=== PATIENT | female | born 2000 | race Two or more races ===

== ENCOUNTER 2025-05-11 19:10 | Inpatient (IN) | payer OTHER ==
[2025-05-11] MEDS ORDERED: Ondansetron 4 MG/2 ML SDV IVPUSH PRN (19:21)
[2025-05-11] MEDS ORDERED: Sodium Chloride 0.9% 10 ML Syringe FLUSH PRN (19:21)
[2025-05-11 19:45] LABS: BASOPHILS ABSOLUTE AUTO 0.0 K/mm3 (0.0-0.2); BASOPHILS PERCENT AUTO 0.1 % (0.0-1.0); EOSINOPHILS ABSOLUTE AUTO 0.1 K/mm3 (0.0-0.4); EOSINOPHILS PERCENT AUTO 0.9 % (0.0-6.0); IMMATURE GRAN ABSOLUTE AUTO 0.15 K/mm3 (0.00-0.05); IMMATURE GRAN PERCENT AUTO 2.0 % (0.0-0.4); LYMPHOCYTES ABSOLUTE AUTO 1.9 K/mm3 (1.0-4.8); LYMPHOCYTES PERCENT AUTO 24.7 % (24.0-44.0); MEAN PLATELET VOLUME 12.0 fl (9.4-12.3); MONOCYTES ABSOLUTE AUTO 0.6 K/mm3 (0.0-0.8); MONOCYTES PERCENT AUTO 8.4 % (0.0-8.0); NEUTROPHILS ABSOLUTE AUTO 4.9 K/mm3 (1.8-7.7); NEUTROPHILS PERCENT AUTO 63.9 % (41.0-71.0); NRBC ABSOLUTE 0.02 (0.00-0.02); NRBC PERCENT 0.3 % (0.0-0.2); PLATELET COUNT,PLT 174 K/mm3 (150-400); RED BLOOD CELL COUNT 3.92 M/mm3 (4.10-5.30); WHITE BLOOD CELL COUNT,WBC 7.64 K/mm3 (3.9-11.3)
[2025-05-11 20:03] LABS: ALANINE AMINOTRANSFERASE,ALT 19.0 U/L (14-59); ASPARTATE AMNIOTRANSFERASE,AST 16.0 U/L (15-37); BLOOD UREA NITROGEN,BUN 21.0 mg/dL (7-18); CREATININE 0.8 mg/dL (0.55-1.02); EST CRCL DRUG DOSING (CG) 77.89 mL/min; ESTIMATED GFR 105.0 mL/min (>60); LACTATE DEHYDROGENASE,LDH 189.0 U/L (81-234)
[2025-05-11] MEDS: Misoprostol 25 MCG (1/4 of 100 MCG) Tab VAG SCH (20:35)
[2025-05-11 22:56] LABS: CREATININE,URINE RAND 105.4 mg/dL (30.0-125.0)
[2025-05-11 23:59] LABS: PROTEIN CREATININE RATIO,URINE 3122.4 mg/g (0-149); PROTEIN,URINE RANDOM 329.1 mg/dL (0.0-11.8)
[2025-05-12] MEDS: Labetalol 100 MG/20 ML MDV IVPUSH STA (05:17)
[2025-05-12] MEDS: Magnesium Sulf/Wat 4 GM/50 mL 4 GM in Premix Bag 1 BAG IV ONE (05:27)
[2025-05-12] MEDS: Magnesium Sulfate 2 GM/50 mL 2 GM in Premix Bag 1 BAG IV ONE (05:42)
[2025-05-12] MEDS: Lactated Ringers 1,000 ML IV SCH ×2 (06:00→08:38)
[2025-05-12] MEDS: Oxytocin/0.9 % Sodium Chloride 30 UNIT/500 ML BAG IV SCH ×2 (08:40→20:50)
[2025-05-12] MEDS: Nalbuphine 10 MG/1 ML Vial IVPUSH PRN (08:57)
[2025-05-12] MEDS: Sodium Chloride 0.9% 10 ML Syringe FLUSH SCH (09:24)
[2025-05-12] MEDS ORDERED: Calcium Gluconate 10% 1 GM/10 ML SDV IVPUSH PRN (09:25)
[2025-05-12] MEDS ORDERED: diphenhydrAMINE 50 MG/ML SDV IVPUSH PRN (10:26)
[2025-05-12] MEDS ORDERED: ePHEDrine 50 MG/ML SDV IVPUSH PRN (10:26)
[2025-05-12] MEDS: Bupivacaine/fentaNYL/NS 100 ML Bag EPIDUR PRN (14:02)
[2025-05-12] MEDS: fentaNYL 100 MCG/2 ML SDV EPIDUR PRN (14:02)
[2025-05-12] MEDS: Carboprost Tromethamine 250 MCG/1 mL Vial IM ONE (19:49)
[2025-05-12] MEDS: Labetalol 100 MG/20 ML MDV IVPUSH ONE (20:30)
[2025-05-13] MEDS ORDERED: Witch Hazel Medicated Pads 40/Jar TOP PRN (00:51)
[2025-05-13] MEDS ORDERED: Benzocaine/Menthol 20%-0.5% Spray 78 GM Cannister TOP PRN (00:51)
[2025-05-13] MEDS: NIFEdipine 30 MG Tab.ER PO SCH (08:35)
== END 2025-05-14 16:45 | disposition home or self-care (01) | DRG 807 ==
LOC: JD.OBCHECK 19:10 → JD.OB 19:13 → JD.OBCHECK 19:23 → JD.OB 19:23 → OBSVTOIN 05-12 20:14 → JD.OB 05-12 22:54
PROVIDERS: ADMIT Obstetrics & Gynecology; ATTEND Obstetrics & Gynecology
PROC: 3E033VJ Introduction of Other Hormone into Peripheral Vein, Percutaneous Approach (ICD-10-PCS; principal; 2025-05-12)
PROC: 0U7C7DJ Dilation of Cervix with Intraluminal Device, Temporary, Via Natural or Artificial Opening (ICD-10-PCS; principal; 2025-05-12)
PROC: 10E0XZZ Delivery of Products of Conception, External Approach (ICD-10-PCS; principal; 2025-05-12)
PROC: 10907ZC Drainage of Amniotic Fluid, Therapeutic from Products of Conception, Via Natural or Artificial Opening (ICD-10-PCS; principal; 2025-05-12)
PROC: 3E0R3BZ Introduction of Anesthetic Agent into Spinal Canal, Percutaneous Approach (ICD-10-PCS; principal; 2025-05-12)
DX: O14.14 Severe pre-eclampsia complicating childbirth (principal); Z37.0 Single live birth; Z3A.37 37 weeks gestation of pregnancy; O72.1 Other immediate postpartum hemorrhage; O99.214 Obesity complicating childbirth; O99.344 Other mental disorders complicating childbirth; Z86.16 Personal history of COVID-19; Z79.899 Other long term (current) drug therapy
CPT/HCPCS: 01967; 36415; 51701; 59025; 59409; 82565; 82570; 83615; 84156; 84450; 84460; 84520; 85025; 86592; 86850; 86900; 86901; A9270-GY; C1758; J0665; J1920; J2300; J3010; J3475; J3490; J7120; J7999